=== PATIENT | female | born 1965 | race Caucasian/White ===

== ENCOUNTER → 2019-03-29 | Outpatient (CLI) | payer BC ==
--- NOTE | 2019-03-29 16:56 | XR ---
Right foot HISTORY: Pain, remote trauma 3 views of the right foot There is no change in the first metatarsophalangeal joint. Alignment is maintained, bone mineralizati on is reduced. Hypertrophic spurring present at the metatarsophalangeal joint. IMPRESSION: No fracture or dislocation. Osteoarthritis
== END | disposition home or self-care (01) ==
LOC: RADXRMAIN 11:24
PROVIDERS: ATTEND Family Medicine
DX: M79.671 Pain in right foot (principal)

== ENCOUNTER → 2019-08-16 | Outpatient (CLI) | payer BC ==
--- NOTE | 2019-08-17 11:03 | MM ---
Reason for exam: screening (asymptomatic). History: Patient is postmenopausal and is nulliparous. Took hormonal contraceptives for 25 years. Physical Findings: A clinical breast exam by your physician is recommended on an annual basis and results should be correlated with mammographic findings. MG Screening Mammo w CAD Bilateral CC and MLO view(s) were taken. No prior studies available for comparison. There are scattered fibroglandular densities. No suspicious abnormality. ASSESSMENT: Negative, BI-RAD 1 RECOMMENDATION: Routine screening mammogram of both breasts in 1 year.
== END | disposition home or self-care (01) ==
LOC: RADMAMWWP 14:34
PROVIDERS: ATTEND Family Medicine
DX: Z12.31 Encounter for screening mammogram for malignant neoplasm of breast (principal)
CPT/HCPCS: 77067

== ENCOUNTER 2019-10-31 09:44 | Day surgery (SDC) | payer BC ==
[2019-10-29 15:20] VITALS: BMI 40.1
--- NOTE | 2019-10-31 08:40 | P.GSHP ---
History of Present Illness H&P Date: 10/31/19 CHIEF COMPLAINT: Colon screen HISTORY OF PRESENT ILLNESS: The patient is a 53-year-old female who presents for colon screen. Lower endoscopy was offered for further evaluation and management. PAST MEDICAL HISTORY: Please see list. PAST SURGICAL HISTORY: Please see list. MEDICATIONS: Please see list. ALLERGIES: Please see list. SOCIAL HISTORY: No illicit drug use FAMILY HISTORY: No reports of Crohn disease or ulcerative colitis. REVIEW OF ORGAN SYSTEMS: CONSTITUTIONAL: No reports of fevers or chills. PHYSICAL EXAM: VITAL SIGNS: Stable GENERAL: Well-developed pleasant in no acute distress. HEENT: No scleral icterus. Extraocular movements grossly intact. Moist buccal mucosa. NECK: Supple without lymphadenopathy. CHEST: Unlabored respirations. Equal bilateral excursions. CARDIOVASCULAR: Regular rate and rhythm. Distal 2+ pulses. ABDOMEN: Soft, nontender, nondistended. MUSCULOSKELETAL: No clubbing, cyanosis, or edema. ASSESSMENT: 1. Colon screen. PLAN: 1. Recommend proceeding with a lower endoscopy Past Medical History Past Medical History: Asthma, Hypertension History of Any Multi-Drug Resistant Organisms: None Reported Past Surgical History: No Surgical Hx Reported Past Anesthesia/Blood Transfusion Reactions: No Reported Reaction Additional Past Anesthesia/Blood Transfusion Reaction / Comment(s): no hx of having general anesthesia or blood transfusion Smoking Status: Former smoker - Past Family History Mother Family Medical History: No Reported History Medications and Allergies Home Medications Medication Instructions Recorded Confirmed Type Albuterol Inhaler [Ventolin Hfa 1 - 2 puff INHALATION RT-Q6H PRN 10/29/19 10/29/19 History Inhaler] Montelukast Sodium [Singulair] 10 mg PO HS 10/29/19 10/29/19 History Vitamin C/Biotin [Hair, Skin and 1 tab PO DAILY 10/29/19 10/29/19 History Nails] amLODIPine [Norvasc] 5 mg PO HS 10/29/19 10/29/19 History diphenhydrAMINE [Benadryl] 25 mg PO QID PRN 10/29/19 10/29/19 History Allergies Allergy/AdvReac Type Severity Reaction Status Date / Time aspirin Allergy SOB Verified 10/29/19 15:08 NSAIDS (Non-Steroidal Allergy SOB Verified 10/29/19 15:08 Anti-Inflamma Penicillins Allergy SOB Verified 10/29/19 15:08
[~2019-10-31 09:44] MED LIST: LACTATED RINGERS 1,000 ML IV SCH; LIDOCAINE 1% 20 ML VIAL (10MG/ML) FOR IV START INTRADERMA PRN
[2019-10-31 11:50] VITALS: RESP 16; TEMP 98.2
[2019-10-31] MEDS ORDERED: LIDOCAINE 1% INJ 10MG/ML (20 ML MDV) ONE (12:12)
[2019-10-31] MEDS ORDERED: PROPOFOL 10 MG/ML 20 ML VIAL IV ONE (12:12)
--- NOTE | 2019-10-31 12:51 | P.PCN ---
Date of Procedure: 10/31/19 Description of Procedure: PREOPERATIVE DIAGNOSIS: Colonoscopy screening, first POSTOPERATIVE DIAGNOSIS: Colonoscopy screening, first Multiple tubular adenomas throughout the colon Sigmoid diverticulosis Internal hemorrhoids, grade 2 OPERATION: Colonoscopy to the ileocecal valve and appendiceal orifice. Colonoscopy with multiple hot snare polypectomies Colonoscopy with cold forceps biopsies SURGEON: Radha Patel MD. ANESTHESIA: MAC. INDICATIONS: The patient is an 53-year-old female who presents for her first colonoscopy exam. Benefits and risks were described and informed consent was obtained. DESCRIPTION OF PROCEDURE: The patient had undergone Suprep. She had been brought into the operating room and laid in the left lateral decubitus position. After adequate intravenous sedation, the rectum was examined with 2% lidocaine jelly. No external hemorrhoids were encountered. The rectal tone was within normal limits. No lesions were palpated in the rectal vault. An Olympus colonoscope was advanced until the ileocecal valve and appendiceal orifice were clearly viewed. The prep was fair. Sigmoid diverticulosis was encountered. Multiple colonic polyps were found and snare polypectomy. No evidence of focal colitis was found. Retroflexion of the scope demonstrated grade 2 internal hemorrhoids without active bleeding or inflammation. The colon was desufflated. The patient had tolerated the procedure well. Withdrawal time was over 6 minutes. FINDINGS: Aronchick preparation quality scale 2 (1-5) Internal hemorrhoids, grade 2 No external hemorrhoids No arteriovenous malformations. Sigmoid diverticulosis Removal of 7 polyps: - Snare polypectomy 20 cm from the anal verge, 30 mm tubular adenoma polyp, sigmoid colon - Cold forceps biopsy at 28 cm from the anal verge, 4 mm polyp, descending colon - Cold forceps biopsy at 30 cm from the anal verge, 5 mm polyps, descending col on - Cold forceps biopsy at 45 cm from the anal verge , 4 mm polyp, descending colon - Cold forceps biopsy at distal transverse colon x 2, 3 to 4 mm polyp - Cold forceps biopsy at mid transverse colon, 4 mm polyp. No focal colitis. RECOMMENDATIONS: Given severity of tubular adenomas, recommend repeat colonoscopy 1 year. Plan - Discharge Summary Discharge Rx Participant: No New Discharge Prescriptions: No Action Vitamin C/Biotin [Hair, Skin and Nails] 1 tab PO DAILY diphenhydrAMINE [Benadryl] 25 mg PO QID PRN PRN Reason: allergies Albuterol Inhaler [Ventolin Hfa Inhaler] 1 - 2 puff INHALATION RT-Q6H PRN PRN Reason: sob amLODIPine [Norvasc] 5 mg PO HS Montelukast Sodium [Singulair] 10 mg PO HS LORazepam [Ativan] 0.5 mg PO PRN PRN Reason: Anxiety Discharge Medication List Albuterol Inhaler [Ventolin Hfa Inhaler] 1 - 2 puff INHALATION RT-Q6H PRN 10/29/19 [History] Montelukast Sodium [Singulair] 10 mg PO HS 10/29/19 [History] Vitamin C/Biotin [Hair, Skin and Nails] 1 tab PO DAILY 10/29/19 [History] amLODIPine [Norvasc] 5 mg PO HS 10/29/19 [History] diphenhydrAMINE [Benadryl] 25 mg PO QID PRN 10/29/19 [History] LORazepam [Ativan] 0.5 mg PO PRN 10/31/19 [History] Follow up Appointment(s)/Referral(s): Radha Patel MD [STAFF PHYSICIAN] - 11/13/19 Patient Instructions/Handouts: Colorectal Polyps (DC), Diverticulosis Diet (GEN), Diverticulosis (DC) Activity/Diet/Wound Care/Special Instructions: Repeat colonoscopy 1 year 2020 Discharge Disposition: HOME SELF-CARE
[2019-10-31 13:03] VITALS: BP 133/85; PULSE 98
== END 2019-10-31 13:22 | disposition home or self-care (01) ==
LOC: ORWHC2ENDO 09:44
PROVIDERS: ATTEND Surgery Plastic and Reconstructive Surgery
DX: Z12.11 Encounter for screening for malignant neoplasm of colon (principal); K63.5 Polyp of colon; D12.4 Benign neoplasm of descending colon; D12.5 Benign neoplasm of sigmoid colon; K57.30 Diverticulosis of large intestine without perforation or abscess without bleeding; K64.1 Second degree hemorrhoids; J45.909 Unspecified asthma, uncomplicated; I10 Essential (primary) hypertension; Z87.891 Personal history of nicotine dependence; Z79.899 Other long term (current) drug therapy; Z88.6 Allergy status to analgesic agent; Z91.09 Other allergy status, other than to drugs and biological substances; Z88.0 Allergy status to penicillin
CPT/HCPCS: 88305; 45380; 45385; J2001; J2704